=== PATIENT | female | born 1950 | race Caucasian/White ===

== ENCOUNTER 2017-11-07 14:01 | Outpatient (CLI) | payer MEDICARE | END 2017-11-07 23:59 | disposition home or self-care (01) | LOC: D.MAMMO 14:01 | DX: Z12.31 Encounter for screening mammogram for malignant neoplasm of breast (principal) ==

== ENCOUNTER 2017-12-03 08:00 | Outpatient (CLI) | payer MEDICARE | END 2017-12-03 09:00 | disposition home or self-care (01) | LOC: D.MAMMO 08:00 | DX: R92.8 Other abnormal and inconclusive findings on diagnostic imaging of breast (principal) ==

== ENCOUNTER 2019-09-05 15:26 | Inpatient (IN) | payer MEDICARE ==
[~2019-09-05] VITALS: Ht 167.6 cm; Wt 86.2 kg
--- NOTE | 2019-09-05 21:41 | NUR ---
STARTED DILAUDID STAPLING MACHINE OPERATOR PER ORDER. TEACHING PERFORMED ON USE.
[2019-09-05] MEDS ORDERED: ULTRAM50 MG PO (22:26)
[2019-09-05] MEDS ORDERED: LIPITOR20 MG PO (22:26)
[2019-09-05] MEDS ORDERED: KLONOPIN1 MG PO (22:27)
[2019-09-05] MEDS ORDERED: CYCLOBENZAPRINE10 MG PO (22:27)
[2019-09-05] MEDS ORDERED: LINZESS290 MCG PO (22:28)
[2019-09-05 22:30] VITALS: BP 149/82; BMI 30.7
--- NOTE | 2019-09-05 22:46 | NUR ---
ADMISSION ASSESSMENT AND HISTORY COMPLETE.
[2019-09-06 01:25] VITALS: BP 118/65
[2019-09-06 04:59] VITALS: BP 127/68
--- NOTE | 2019-09-06 07:00 | NUR ---
ALERT AND ORIENTED. NO C/O PAIN, DILAUDID CAMPGROUND CARETAKER MANAGING PAIN AT THIS TIME. NO S/S OF ACUTE DISTRESS NOTED. ON BEDREST D/T RIGHT ANKLE FX. FELL AT HOME. IV TO LEFT HAND, NS INFUSING @ 75ML/HR. SITE PATENT WITHOUT REDNESS OR SWELLING. DENIES ANY NEEDS AT THIS TIME. CALL LIGHT IN REACH. WILL CONTINUE TO MONITOR.
[2019-09-06 09:27] VITALS: BP 144/78
[2019-09-06 12:25] VITALS: Ht 167.6 cm; Wt 86.2 kg
[2019-09-06 13:19] VITALS: BP 150/85
--- NOTE | 2019-09-06 13:41 | NUR ---
LYING IN BED,WITHOUT DISTRESS.CALL LIGHT IN REACH
[2019-09-06 17:47] VITALS: BP 140/85
--- NOTE | 2019-09-06 18:12 | NUR ---
ALERT AND ORIENTED, SITTING UP IN BED WITH EYES OPEN. NO C/O PAIN. NO S/S OF ACUTE DISTRESS NOTED. DENIES ANY NEEDS AT THIS TIME. CALL LIGHT IN REACH. WILL CONTINUE TO MONITOR.
--- NOTE | 2019-09-06 19:25 | NUR ---
A&O X 4. SUPINE IN BED, REPORTS PAIN OF 6/10. ICE PACKS TO RIGHT ANKLE PER REQUEST. DRESSING C/D/I. WILL CONTINUE TO MONITOR.
[2019-09-06 20:00] VITALS: BP 128/77
[2019-09-07 00:57] VITALS: BP 142/65
--- NOTE | 2019-09-07 02:19 | NUR ---
I have reviewed this patient and I concur with the Shift Assessment completed by the Licensed Practical Nurse today this shift.
[2019-09-07 04:57] VITALS: BP 140/68
[2019-09-07 05:54] LABS: BASOPHILS 0.3 % (0-2); EOSINOPHILS 0.8 % (0-7); HEMATOCRIT 38.2 % (36.0-48.0); IMMATURE GRANULOCYTES 0.4 % (0-5); LYMPHOCYTES 17.5 % (15-50); MCH 30.5 pg (26.0-34.0); MCHC 31.4 g/dL (31.0-37.0); MCV 97.2 fL (80.0-100.0); MEAN PLATELET VOLUME 10.4 fL (7.4-10.4); MONOCYTES 11.5 % (2-11); NEUTROPHILS 69.5 % (40-80); PLATELET COUNT 230 10x3/uL (130-400); RBC 3.93 10x6/uL (4.00-5.40); RDW 15.5 % (11.5-14.5); WBC 12.3 10x3/uL (4.8-10.8)
[2019-09-07 06:12] LABS: ALBUMIN 2.8 g/dL (3.4-5.0); ALKALINE PHOSPHATASE 66 U/L (30-120); ALT (SGPT) 13 U/L (10-68); BILIRUBIN - TOTAL 0.56 mg/dL (0.2-1.3); CALC OSMOLALITY 275 mosm/kg (275-300); CALCIUM 7.7 mg/dL (8.5-10.1); CHLORIDE - SERUM 104 mmol/L (98-107); CREATININE - SERUM 0.8 mg/dL (0.6-1.3); GLUCOSE 110 mg/dL (74-106); POTASSIUM - SERUM 3.4 mmol/L (3.5-5.1); PROTEIN - SERUM 5.9 g/dL (6.4-8.2); SODIUM 138 mmol/L (136-145); UREA NITROGEN 9 mg/dL (7-18); eGFR NON AFRICAN AMERICAN 75 mL/min (90-120)
--- NOTE | 2019-09-07 07:00 | NUR ---
RECEIVED PT FROM GOLD FRAME ASSEMBLER. UPON ENTERING PT IS ALERT AND ORIENTED X4. RIGHT ANKLE IS BROKEN ON BOTH SIDES, REFUSING SURGERY, HAS A BOOT. HAS T1 COMPRESSION FRACTURE. USES TRAPEZE BAR AND BED TINEO AND IS ON BED REST. PT HAS LEFT HAND NS @ 75. PT HAS PRODUCTION ILLUSTRATOR DILAUDID. PT DENIES ANY NEEDS AT THIS TIME. DENIES ANY NEEDS AT THIS TIME.
--- NOTE | 2019-09-07 08:07 | NUR ---
PUT NEW DILAUDID SYRINGE IN PT RECORDS ASSISTANT PUMP. RESTING COMFORTABLY. DENIES ANY NEEDS. WILL CONTINUE TO MONITOR.
--- NOTE | 2019-09-07 08:36 | NUR ---
PT REFUSED NICODERM PATCH. RESTING COMFORTABLY IN BED. SAYS DILAUDID IS MAKING HER FEEL VERY DROWSY. DENIES ANY NEEDS OR INTERVENTIONS FOR REPORTED DROWSINESS. RESTING COMFORTABLY IN BED. WILL CONTINUE TO MONITOR.
[2019-09-07 08:47] VITALS: BP 104/62
--- NOTE | 2019-09-07 09:50 | NUR ---
PT GONE TO XRAY.
--- NOTE | 2019-09-07 10:50 | NUR ---
PT IN ROOM WITH PT, WORKING WITH AMBULATION AND PLACING BOOT. PT WISHES TO GET UP TO THE BEDSIDE COMMODE. DENIES NEEDS CURRENTLY. WILL CONTINUE TO MONITOR.
--- NOTE | 2019-09-07 11:14 | NUR ---
CALLED REPORT TO MED 2. PT IS TRANSFERRING DUE TO PENDING COVID TEST.
[2019-09-07 12:05] LABS: C-REACTIVE PROTEIN 16.9 mg/dL (0.0-0.9)
[2019-09-07 12:34] LABS: ERYTHROCYTE SEDIMENTATION RATE 17 mm/hr (0-30)
--- NOTE | 2019-09-07 13:01 | NUR ---
TRANSFERED PT TO [facility], ANGEL DIAZ IS TAKING PATIENT.
--- NOTE | 2019-09-07 13:22 | NUR ---
RECEIVED PT TO ROOM 2128 VIA BED. PT A/O X4, RESP EVEN AND NONLABORED ON RA. LT HAND AND RT FA IV BOTH SL. ORIENTED PT TO ROOM AND CALL LIGHT. PT REFUSES TO WEAR BACK BRACE AND BOOT. STATES THAT THEY ARE VERY UMCOMFORTABLE. 9AM MEDS ON EMAR SHOWING THEY NEED TO BE GIVEN. WILL ASSESS PT AND CONTINUE PLAN OF CARE.
--- NOTE | 2019-09-07 13:43 | NUR ---
I have reviewed this patient and I concur with the Shift Assessment completed by the Licensed Practical Nurse today this shift.
[2019-09-07 13:55] VITALS: BP 148/73
[2019-09-07 16:53] VITALS: BP 139/81
--- NOTE | 2019-09-07 17:11 | NUR ---
URINE SAMPLE COLLECTED AND TAKE TO LAB. PT RESTING COMFORTABLY IN BED,DENIES ANY NEEDS AT THIS TIME. CALL LIGHT IN REACH.
[2019-09-07 17:31] LABS: BILIRUBIN NEGATIVE (NEGATIVE); GLUCOSE NEGATIVE (NEGATIVE); KETONE NEGATIVE (NEGATIVE); NITRITE NEGATIVE (NEGATIVE); SPECIFIC GRAVITY 1.015 (1.005-1.020); UROBILINOGEN NORMAL (NORMAL)
[2019-09-07 17:32] LABS: RED CELLS - URINE OCC /hpf (0-5); WHITE CELLS - URINE OCC /hpf (NEGATIVE)
[2019-09-07 20:35] VITALS: BP 135/68
[2019-09-08 04:01] LABS: BASOPHILS 0.4 % (0-2); EOSINOPHILS 1.2 % (0-7); HEMATOCRIT 36.4 % (36.0-48.0); HEMOGLOBIN 11.7 g/dL (12-16); IMMATURE GRANULOCYTES 0.4 % (0-5); LYMPHOCYTES 14.6 % (15-50); MCH 30.7 pg (26.0-34.0); MCHC 32.1 g/dL (31.0-37.0); MCV 95.5 fL (80.0-100.0); MEAN PLATELET VOLUME 10.4 fL (7.4-10.4); MONOCYTES 10.5 % (2-11); NEUTROPHILS 72.9 % (40-80); PLATELET COUNT 219 10x3/uL (130-400); RBC 3.81 10x6/uL (4.00-5.40); WBC 11.3 10x3/uL (4.8-10.8)
[2019-09-08 04:05] LABS: ALBUMIN 2.7 g/dL (3.4-5.0); ALKALINE PHOSPHATASE 65 U/L (30-120); CALC OSMOLALITY 269 mosm/kg (275-300); CALCIUM 7.9 mg/dL (8.5-10.1); CARBON DIOXIDE 26.7 mmol/L (21.0-32.0); CHLORIDE - SERUM 103 mmol/L (98-107); CREATININE - SERUM 0.6 mg/dL (0.6-1.3); GLUCOSE 107 mg/dL (74-106); POTASSIUM - SERUM 3.6 mmol/L (3.5-5.1); PROTEIN - SERUM 5.8 g/dL (6.4-8.2); SODIUM 136 mmol/L (136-145); UREA NITROGEN 8 mg/dL (7-18); eGFR NON AFRICAN AMERICAN > 90 mL/min (90-120)
[2019-09-08 04:14] LABS: ALT (SGPT) 17 U/L (10-68)
--- NOTE | 2019-09-08 08:55 | NUR ---
PT SITTING UP SEMI FOWLERS IN BED. RR EVEN AND UNLABORED ON RA. PT HAS A L FA PIV INFUSING NS @75 AND A DILUDID COMMUNITY AIDE @ ., SHE IS ALERT AND ORIENTED X3. SHE IS CURRENTLY WEARING HER BOOT TO THE RIGHT FOOT. PT STATES SHE IS READY TO GO HOME. BED LOCKED AND IN LOWEST POSITION, CALL LIGHT WITHIN REACH. WILL CTM
[2019-09-08 08:56] VITALS: BP 149/84
--- NOTE | 2019-09-08 11:07 | NUR ---
Nutrition Follow-up: In droplet isolation; covid pending. Nursing reports she ate ok this AM. Diet: Regular Wt: 190# (09/05) Labs noted: Glu 107, Ca 7.9, Alb 2.7 Meds noted: NS @ 75 -Encourage PO intake and honor food preferences. -Offer nutrition supplements. -RD following.
--- NOTE | 2019-09-08 12:09 | NUR ---
I have reviewed this patient and I concur with the Shift Assessment completed by the Licensed Practical Nurse today this shift.
[2019-09-08 20:38] VITALS: BP 142/87
[2019-09-09 04:07] LABS: IMMUNOGLOBULIN A 126 mg/dL (64-422); IMMUNOGLOBULIN G 414 mg/dL (586-1602)
[2019-09-09 04:16] LABS: BASOPHILS 0.2 % (0-2); EOSINOPHILS 1.1 % (0-7); HEMATOCRIT 35.6 % (36.0-48.0); HEMOGLOBIN 11.4 g/dL (12-16); IMMATURE GRANULOCYTES 0.6 % (0-5); LYMPHOCYTES 16.2 % (15-50); MCH 30.6 pg (26.0-34.0); MCV 95.7 fL (80.0-100.0); MEAN PLATELET VOLUME 10.4 fL (7.4-10.4); MONOCYTES 10.3 % (2-11); NEUTROPHILS 71.6 % (40-80); PLATELET COUNT 254 10x3/uL (130-400); RBC 3.72 10x6/uL (4.00-5.40); WBC 12.6 10x3/uL (4.8-10.8)
[2019-09-09 04:39] LABS: ALBUMIN 2.7 g/dL (3.4-5.0); ALKALINE PHOSPHATASE 62 U/L (30-120); ALT (SGPT) 16 U/L (10-68); BILIRUBIN - TOTAL 0.53 mg/dL (0.2-1.3); CALC OSMOLALITY 274 mosm/kg (275-300); CALCIUM 8.3 mg/dL (8.5-10.1); CARBON DIOXIDE 25.3 mmol/L (21.0-32.0); CHLORIDE - SERUM 104 mmol/L (98-107); CREATININE - SERUM 0.7 mg/dL (0.6-1.3); GLUCOSE 104 mg/dL (74-106); POTASSIUM - SERUM 3.7 mmol/L (3.5-5.1); PROTEIN - SERUM 5.9 g/dL (6.4-8.2); SODIUM 138 mmol/L (136-145); UREA NITROGEN 9 mg/dL (7-18); eGFR NON AFRICAN AMERICAN 87 mL/min (90-120)
--- NOTE | 2019-09-09 07:38 | NUR ---
REPORT RECEIVED FROM MEDICAL PROFESSIONALS ANDPATIENT CARE ASSUMED. PATIENT LAYING IN BED ON BACK AWAKE, ALERT AND ORIENTED X 4. BROUGHT PATIENT 2 CUPS OF ICE. PATIENT DENIES ANY NEEDS OR PAIN. PATIENT IS STABLE. WILL CONTINUE WITH PLAN OF CARE. SR UP X 2 BED IN LOW POSITION AND CALL LIGHT IN REACH.
[2019-09-09 08:58] VITALS: BP 149/76
--- NOTE | 2019-09-09 09:48 | NUR ---
COVID19 Test results Negative, may discontinue enhanced droplet isolation.
--- NOTE | 2019-09-09 15:20 | NUR ---
OT NOTE: PT COMPLETED SUPINE TO SIT WITH THE TRAP BAR REQUIRED SBA. PT COMPLETED EOB SITTING BALANCE WITH SBA. PT COMPLETED BUE AROM EXS AT EOB. PT COMPLETED SIT TO STAND WHILE MAINTAINING PRECAUTIONS WITH CGA. PT COMPLETED FACE HYGIENE WITH SET UP. 105-129 THANK YOU,CAS BURRIS
--- NOTE | 2019-09-09 19:30 | NUR ---
PT IN BED, AAO X 3, RESP EVEN AND UNLABORED. NO DISTRESS NOTED, CL IN REACH, SR UP X 2.
[2019-09-09 20:00] VITALS: BP 142/67
[2019-09-10] VITALS: BP 142/77
[2019-09-10 04:00] VITALS: BP 151/53
[2019-09-10 05:01] LABS: BASOPHILS 0.3 % (0-2); EOSINOPHILS 2.1 % (0-7); HEMATOCRIT 34.2 % (36.0-48.0); HEMOGLOBIN 11.1 g/dL (12-16); IMMATURE GRANULOCYTES 0.6 % (0-5); LYMPHOCYTES 17.3 % (15-50); MCH 31.2 pg (26.0-34.0); MCHC 32.5 g/dL (31.0-37.0); MCV 96.1 fL (80.0-100.0); MEAN PLATELET VOLUME 10.2 fL (7.4-10.4); MONOCYTES 13.4 % (2-11); NEUTROPHILS 66.3 % (40-80); PLATELET COUNT 276 10x3/uL (130-400); RBC 3.56 10x6/uL (4.00-5.40); WBC 10.2 10x3/uL (4.8-10.8)
[2019-09-10 05:22] LABS: % SATURATION 16 % (15-55); IRON 24 ug/dl (35-150); TOTAL IRON BIND CAPACITY 150 ug/dl (260-445); UNSAT IRON BIND CAPACITY 126 ug/dl (150-375)
[2019-09-10 05:34] LABS: ALBUMIN 2.5 g/dL (3.4-5.0); ALKALINE PHOSPHATASE 60 U/L (30-120); ALT (SGPT) 16 U/L (10-68); BILIRUBIN - TOTAL 0.65 mg/dL (0.2-1.3); CALC OSMOLALITY 278 mosm/kg (275-300); CALCIUM 8.2 mg/dL (8.5-10.1); CARBON DIOXIDE 25.5 mmol/L (21.0-32.0); CHLORIDE - SERUM 104 mmol/L (98-107); CREATININE - SERUM 0.7 mg/dL (0.6-1.3); FERRITIN 329 ng/mL (3-244); GLUCOSE 97 mg/dL (74-106); POTASSIUM - SERUM 3.4 mmol/L (3.5-5.1); PROTEIN - SERUM 5.8 g/dL (6.4-8.2); SODIUM 141 mmol/L (136-145); UREA NITROGEN 7 mg/dL (7-18); eGFR NON AFRICAN AMERICAN 87 mL/min (90-120)
--- NOTE | 2019-09-10 07:27 | NUR ---
PT ASLEEP BUT AROUSED TO NOISE, VOICE. BELLOWS CHARGER ASSEMBLER IN USE FOR PAIN.
[2019-09-10 10:56] VITALS: BP 142/72
--- NOTE | 2019-09-10 11:44 | NUR ---
Rehab Prescreening Consult recieved and the chart has been reviewed. She qualifies for ARU and will be accepted today if she is agreeable to participate in the required therapy. Discussed with the CM Kori Dixon RN Clinical Liaison, Rehab
--- NOTE | 2019-09-10 12:10 | MORECARE ---
CASE MANAGEMENT DISCHARGE SUMMARY PATIENT: JOSE FLANAGAN UNIT: [id number] ADM DATE: 09/07/19 AGE: 69 : 48 SEX: F ROOM/BED: D.3840 AUTHOR: SHALINI,DOC PHYSICIAN: REFERRING PHYSICIAN: ANASTACIO CALVO MD DATE OF SERVICE: 09/10/19 Discharge Plan Patient Name: JOSE FLANAGAN Facility: [facility]:[place] : 1950 Planned Disposition: Inpatient Rehab Anticipated Discharge Date: 09/10/19 Discharge Date: Expected LOS: 3 Initial Reviewer: [email or web address] Initial Review Date: 09/10/2019 Generated: 09/10/19 1:10 pm Comments DCP- Discharge Planning Updated by [email or web address]: Kori Jaramillo on 09/10/19 11:[address] Patient Name: JOSE FLANAGAN Admission Status: ER Accout number: [id number] Admission Date: 09-07-2019 : 1950 Admission Diagnosis:DISPLACED BIMALLEOLAR FRACTURE OF RIGHT LOWER LEG, INIT Attending: ANASTACIO CALVO Current LOS: 3 Anticipated DC Date: 09-10-2019 Planned Disposition: Inpatient Rehab Primary Insurance: [facility] [employer] DC Plan: DC to inpatient rehab at [facility] Discharge Planning Comments: CM met with patient to complete initial dc planning assessment. CM educated patient on the CM role and verbal consent given by patient to complete assessment. Patient lives at home alone. States her son lives next door, but isn't able to help much. CM discussed availability of home health, rehab services, and medical equipment. After discussing the difference between inpatient rehab and a skilled facility, the patient would like a referral to [facility] inpatient rehab. I informed [facility] with inpatient rehab and they will accept today, Vandana Landis APN informed. CM will continue to follow and will assist as needed with dc plans/needs. Medical Examiner: Kori Jaramillo DCP- Discharge Planning Updated by [email or web address]: Seble Rahman on 09/06/19 6:[address] SOTO SERVED AND EXPLAINED TO PATIENT, COPY GIVEN AND ONE PLACED IN CHART DCPIA - Discharge Planning Initial Assessment Updated by [email or web address]: Kori Jaramillo on 09/10/19 12:04 pm * Is the patient Alert and Oriented? Yes * PCP Dr. Leeanne Redd in [place] * Pharmacy [facility] in [place] * Preadmission Environment Home Alone * ADLs Partial Dependent * Partial ADLs (Assistance needed) Ambulation * Equipment Bedside Commode Shower Chair Walker * List name and contact numbers for known caregivers / representatives who currently or will assist patient after discharge: Dell shay - [phone] * Verbal permission to speak to the caregivers and representatives has been obtained from the patient. Yes * Community resources currently utilized None * Additional services required to return to the preadmission environment? No * Can the patient safely return to the preadmission environment? Yes * Has this patient been hospitalized within the prior 30 days at any hospital? No External Providers External Provider: [employer] Next Contact Date: Service Request Date: Service Type: Resolution: Reviewer: Comments: Coverage Notice Reviewer: [email or web address] Eliceo Rahman Notice Issued Date-Time: 09/06/2019 19:30 Notice Type: Medicare Outpatient Observation Notice Notice Delivered To: Patient Relationship to Patient: Project Archivist Name: Delivery Method: HAND - Hand Delivered Jeanne Days: Prior Verbal Notification: Recipient Understood Notice: Yes Recipient Signature: Yes Med Rec Note Co-signed by Attending: Coverage Notice Comment: Reviewer: [email or web address] Eliceo Jaramillo Notice Issued Date-Time: 09/10/2019 11:58 Notice Type: IM Discharge Notice Notice Delivered To: Patient Relationship to Patient: Self Project Archivist Name: Delivery Method: HAND - Hand Delivered Jeanne Days: Prior Verbal Notification: Recipient Understood Notice: Yes Recipient Signature: Yes Med Rec Note Co-signed by Attending: Coverage Notice Comment: IMM explained, signed, given, copy placed in MR Reviewer: [id number] Eliceo Jaramillo Notice Issued Date-Time: 09/10/2019 11:58 Notice Type: Patient Choice Letter Notice Delivered To: Patient Relationship to Patient: Self Project Archivist Name: Delivery Method: HAND - Hand Delivered Jeanne Days: Prior Verbal Notification: Recipient Understood Notice: Yes Recipient Signature: Yes Med Rec Note Co-signed by Attending: Coverage Notice Comment: HARRY for [facility] inpatient rehab Patient Name: JOSE FLANAGAN Page [phone] at 1210 All edits/amendments must be made on the electronic document DICTATION DATE: 09/10/19 1210 CONTINUOUS WAVE OPERATOR: ARAM 09/10/19 1210 RPT#: [id number] DC DATE: STATUS: ADM IN [facility] [address] [place] [address] END OF REPORT
[2019-09-10] MEDS ORDERED: Duragesic TRANSDERM (13:59)
[2019-09-10] MEDS ORDERED: LEVAQUIN750 MG PO (13:59)
[2019-09-10 14:29] VITALS: BP 142/78
--- NOTE | 2019-09-10 15:09 | NUR ---
OT NOTE: PT PERFORMED WELL TODAY. BED MOB WITH CGA; PRACTICED SIT TO STAND EXS X 10 REPS WITH USE OF WALKER; AMB TO AND FROM BATHROOM WITH WALKER AND MIN ASSIST; TOILET TRANSFERS IWTH MIN ASSIST; SIMPLE GROOMING WITH SET UP; DISCUSSED NEED FOR REHAB SINCE PT LIVES ALONE AND IS NWB FOR AT LEAST 6 WKS. JACQUELIN EPSTEIN, OTR/L [phone]
--- NOTE | 2019-09-10 16:36 | NUR ---
OT NOTE: PT COMPLETED BED MOB WITH SBA. PT COMPLETED SIT TO STAND WITH CGA. PT COMPLETED ADL MOB WITH RW WITH CGA/. PT COMPLETED TOILETING WITH SBA/CGA. PT DOING WELL. PT IS CONCERNED ABOUT MULTIPLE STEPS TO GET INTO RV. [phone] THANK YOU,CAS BURRIS
--- NOTE | 2019-09-10 18:26 | NUR ---
TRANSFERRED PT TO REHAB ON BED. PARTS DEPARTMENT SUPERVISOR WASTED, VANCOMYCIN INFUSING. BELONGINGS PACKED.
[2019-09-11] MEDS ORDERED: LIPITOR20 MG (03:17)
[2019-09-13 12:08] LABS: IMMUNOGLOBULIN E 14 IU/mL (6-495)
== END 2019-09-10 18:27 | DRG 551 ==
LOC: D.ER 15:26 → D.MS 18:21 → OBSVTIME 18:21 → D.MS 18:21 → D.M2 18:21 → D.SDCHOLD 09-07 12:04 → D.MS 09-07 12:08 → D.M2 09-07 12:59
PROVIDERS: Family Medicine; Internal Medicine Pulmonary Disease; ADMIT Internal Medicine Nephrology; ATTEND Internal Medicine Nephrology
DX: S22.089A Unspecified fracture of T11-T12 vertebra, initial encounter for closed fracture (principal); J18.9 Pneumonia, unspecified organism; J98.11 Atelectasis; S82.841A Displaced bimalleolar fracture of right lower leg, initial encounter for closed fracture; J45.909 Unspecified asthma, uncomplicated; J44.9 Chronic obstructive pulmonary disease, unspecified; W17.89XA Other fall from one level to another, initial encounter

== ENCOUNTER 2019-09-10 17:41 | Inpatient (IN) | payer OTHER ==
[~2019-09-10] VITALS: Ht 167.6 cm; Wt 86.2 kg
[~2019-09-10 17:41] MED LIST: CYCLOBENZAPRINE10 MG PO; Duragesic TRANSDERM; KLONOPIN1 MG PO; LEVAQUIN750 MG PO; LINZESS290 MCG PO; LIPITOR20 MG PO; ULTRAM50 MG PO
--- NOTE | 2019-09-10 18:55 | NUR ---
GREETED PATIENT AND INTRODUCED MYSELF HER NURSE. ASSISTED PATIENT TO BATHROOM USING ONE PERSON ASSIST AND WHEELCHAIR. BACK TO BED AND REPOSITIONED FOR COMFORT. RESPIRATIONS EVEN. NO S/S OF DISTRESS. CALL LIGHT IN REACH.
[2019-09-10 19:30] VITALS: BP 155/71
[2019-09-10 22:41] VITALS: BP 155/71; BMI 30.7
--- NOTE | 2019-09-11 00:13 | NUR ---
DR VIRGEN CALLED AND INFORMED OF PATIENTS ASSESSMENT AND BEHAVIORS. PATIENT IS A LOW RISK FOR SELF HARM. NO ORDERS RECEIVED. INSTRUCTED TO GIVE PATIENT A RESOURCE SHEET AT TIME OF DISCHARGE. INFORMATION COVERED WITH PATIENT AND SHE VERBALIZED UNDERSTANDING.
--- NOTE | 2019-09-11 03:05 | NUR ---
PT RESTING QUIETLY WITH EYES CLOSED. RESPIRATIONS EVEN. NO S/S OF DISTRESS. CALL LIGHT IN REACH.
[2019-09-11] MEDS ORDERED: LIPITOR20 MG (03:17)
[2019-09-11 06:44] LABS: BASOPHILS 0.2 % (0-2); EOSINOPHILS 2.4 % (0-7); HEMATOCRIT 33.6 % (36.0-48.0); HEMOGLOBIN 10.8 g/dL (12-16); LYMPHOCYTES 18.4 % (15-50); MCH 30.5 pg (26.0-34.0); MCHC 32.1 g/dL (31.0-37.0); MCV 94.9 fL (80.0-100.0); PLATELET COUNT 292 10x3/uL (130-400); RBC 3.54 10x6/uL (4.00-5.40); WBC 9.7 10x3/uL (4.8-10.8)
[2019-09-11 06:55] LABS: CALC OSMOLALITY 278 mosm/kg (275-300); CALCIUM 8.3 mg/dL (8.5-10.1); CARBON DIOXIDE 25.4 mmol/L (21.0-32.0); CHLORIDE - SERUM 105 mmol/L (98-107); CREATININE - SERUM 0.6 mg/dL (0.6-1.3); GLUCOSE 94 mg/dL (74-106); SODIUM 141 mmol/L (136-145); UREA NITROGEN 8 mg/dL (7-18); eGFR NON AFRICAN AMERICAN > 90 mL/min (90-120)
[2019-09-11 07:00] LABS: POTASSIUM - SERUM 3.4 mmol/L (3.5-5.1)
--- NOTE | 2019-09-11 07:40 | NUR ---
A/A/OX4. STATES SHE IS HAVING SOME PAIM BUT WILL WAIT A WHILE TO TAKE HER PAIN MEDS. NO REQUESTS VOICED. SALINE LOCK PATENT TO LEFT HAND AND RIGHT FOREARM WITHOUT REDNESS OR EDEMA. SIDERAILS UP X 2, CALL LIGHT IN REACH AND BED IN LOW, LOCKED POSITION. RIGHT FOOT ELEVATED ON PILLOW.
--- NOTE | 2019-09-11 09:28 | NUR ---
WHILE PT WAS TAKING HER SHOWER, THE SALINE LOCK IN HER HAND BECAME LOOSE AND CAM OUT OF HER HAND.
[2019-09-11 09:49] VITALS: Ht 167.6 cm; Wt 86.2 kg
[2019-09-11 10:39] VITALS: BP 146/90
--- NOTE | 2019-09-11 11:59 | NUR ---
I have reviewed this patient and I concur with the Shift Assessment completed by the Licensed Practical Nurse today this shift.
--- NOTE | 2019-09-11 19:00 | NUR ---
GREETED PATIENT AND INTRODUCED MYSELF HER NURSE. PATIENT IS RESTING QUIETLY IN BED WATCHING TV. RESPIRATIONS EVEN. NO S/S OF DISTRESS. BEDSIDE SHIFT REPORT COMPLETE FROM OFFGOING NURSE. PATIENT DENIES ANY NEEDS AT THIS TIME. CALL LIGHT IN REACH.
[2019-09-11 19:45] VITALS: BP 133/75
--- NOTE | 2019-09-12 02:24 | NUR ---
PT RESTING QUIETLY WITH EYES CLOSED. RESPIRATIONS EVEN. NO S/S OF DISTRESS. CALL LIGHT IN REACH.
--- NOTE | 2019-09-12 04:05 | NUR ---
NEW PERIPHERAL IV IN LEFT HAND. 22 GAUGE ON THIRD ATTEMPT. PATIENT TOLERATED PROCEDURE.
--- NOTE | 2019-09-12 06:22 | NUR ---
PT AWAKE AND LAYING IN BED. DENIES ANY NEEDS AT THIS TIME. RESPIRATIONS EVEN. NO S/S OF DISTRESS. CALL LIGHT IN REACH.
--- NOTE | 2019-09-12 07:32 | NUR ---
RECEIVED A/A/OX4. SOME PAIN BUT DECLINES PAIN MED AT THIS TIME, RATES IT AT A 3. NO REQUESTS VOICED. SIDERAILS UP X 2, CALL LIGHT IN REACH AND BED IN LOW, LOCKED POSITION. RIGHT FOOT ELEVATED ON PILLOW.
--- NOTE | 2019-09-12 11:19 | NUR ---
REQUESTED PAIN PILL FOR PAIN 10/10 RIGHT ANKLE. MEDICATED WITH ULTRAM 50 MG PO.
[2019-09-12 11:28] VITALS: BP 116/72
--- NOTE | 2019-09-12 13:20 | NUR ---
I have reviewed this patient and I concur with the Shift Assessment completed by the Licensed Practical Nurse today this shift.
--- NOTE | 2019-09-12 14:58 | NUR ---
REQUESTED MED FOR ANXIETY AND GIVEN KLONOPIN ORDERED.
--- NOTE | 2019-09-12 19:05 | NUR ---
GREETED PATIENT AND INTRODUCED MYSELF HER NURSE. PATIENT IS LAYING IN BED RESTING QUIETLY AT THIS TIME. BEDSIDE SHIFT REPORT COMPLETED FROM OFF GOING NURSE. RESPIRATIONS EVEN. NO S/S OF DISTRESS. CALL LIGHT IN REACH. PT. DENIES ANY NEEDS AT THIS TIME. CALL LIGHT IN REACH.
--- NOTE | 2019-09-12 19:05 | NUR ---
GREETED PATIENT AND INTRODUCED MYSELF HER NURSE. PATIENT IS LAYING IN BED RESTING QUIETLY AT THIS TIME. RESPIRATIONS EVEN. NO S/S OF DISTRESS. BEDSIDE SHIFT REPORT COMPLETED FROM OFF GOING NURSE. PATIENT DENIES ANY NEEDS AT THIS TIME. CALL LIGHT IN REACH.
[2019-09-12 20:00] VITALS: BP 114/58
--- NOTE | 2019-09-13 00:34 | NUR ---
PT RESTING QUIETLY WITH EYES CLOSED. RESPIRATIONS EVEN. NO S/S OF DISTRESS. CALL LIGHT IN REACH.
[2019-09-13 05:29] LABS: BASOPHILS 0.3 % (0-2); EOSINOPHILS 2.3 % (0-7); HEMATOCRIT 32.6 % (36.0-48.0); HEMOGLOBIN 10.2 g/dL (12-16); IMMATURE GRANULOCYTES 1.2 % (0-5); LYMPHOCYTES 21.2 % (15-50); MCH 29.7 pg (26.0-34.0); MCHC 31.3 g/dL (31.0-37.0); MCV 94.8 fL (80.0-100.0); MONOCYTES 11.2 % (2-11); NEUTROPHILS 63.8 % (40-80); RBC 3.44 10x6/uL (4.00-5.40)
[2019-09-13 06:07] LABS: PLATELET COUNT 379 10x3/uL (130-400)
[2019-09-13 06:25] LABS: ALBUMIN 2.2 g/dL (3.4-5.0); ALKALINE PHOSPHATASE 63 U/L (30-120); ALT (SGPT) 18 U/L (10-68); BILIRUBIN - TOTAL 0.47 mg/dL (0.2-1.3); CALC OSMOLALITY 277 mosm/kg (275-300); CALCIUM 7.8 mg/dL (8.5-10.1); CARBON DIOXIDE 27.9 mmol/L (21.0-32.0); CHLORIDE - SERUM 105 mmol/L (98-107); CREATININE - SERUM 0.8 mg/dL (0.6-1.3); GLUCOSE 96 mg/dL (74-106); POTASSIUM - SERUM 3.6 mmol/L (3.5-5.1); PROTEIN - SERUM 5.4 g/dL (6.4-8.2); SODIUM 140 mmol/L (136-145); UREA NITROGEN 9 mg/dL (7-18); eGFR NON AFRICAN AMERICAN 75 mL/min (90-120)
--- NOTE | 2019-09-13 07:42 | NUR ---
AWAKE AND ALERT IN BED, DENIES ANY PAIN OR NEEDS AT THIS TIME, C/L AND H2O IN REACH
[2019-09-13 08:09] VITALS: BP 116/69
--- NOTE | 2019-09-13 11:12 | NUR ---
PATIENT ADMITTED TO REHAB FROM ACUTE FLOOR. PATIENT PCP IS DR. RAUL CEDENO IN [place]. DME AT HOME IS BEDSIDE COMMODE, SHOWER CHAIR AND A WALKER. DISCHARGE PLANS ARE FOR PATIENT TO RETURN HOME. HER SON LIVES NEXT DOOR. CLINICAL UPDATE SFAXED TO [facility] AT , AUTH # [id number] WITH CONFORMATION RECIEVED
--- NOTE | 2019-09-13 12:00 | NUR ---
RESTING IN BED, DENIES ANY PAIN AT THIS TIME, C/L AND H2O IN REACH
[2019-09-13 12:34] VITALS: BP 116/69
--- NOTE | 2019-09-13 16:00 | NUR ---
AWAKE AND ALERT IN BED, DENIES ANY NEEDS AT THIS TIME, C/L AND H2O IN REACH
[2019-09-13 20:00] VITALS: BP 102/48
--- NOTE | 2019-09-13 20:20 | NUR ---
PT RESTING WITH EYES CLOSED, AROUSES TO SOFT VERBAL STIMULATION, VS OBTAINED PER ASSISTANT PROFESSOR IN FAMILY STUDIES, RIGHT ANKLE NOTED TO HAVE A LARGE BLISTER, PT REPORTS THAT IT "BUSTED TODAY", BUT INFORMED PT THAT THE BLISTER IS STILL THERE, WILL KEEP IT TO OPEN AIR AT THIS TIME, PT REPORTS FLATUS, AND HAVING SEVERAL LARGE BM'S TODAY, PT DENIES NEEDS OR PAIN AT THIS TIME, BED IN LOW POSITION, SIDE RAILS X 2, CALL LIGHT IN REACH
--- NOTE | 2019-09-13 21:32 | NUR ---
PT AWAKE, ADM 2100 MEDS PER MD ORDERS, SEE EMAR, PT REFUSES COLACE, MIRALAX, AND LIPITOR AT THIS TIME, PT REQUESTED AND SERVED DIET COLA, PT DOES REQUEST HER KLONIPIN AT 11:00 PM, PT DENIES FURTHER NEEDS, BED IN LOW POSITION, SIDE RAILS X 2, CALL LIGHT IN REACH
--- NOTE | 2019-09-13 22:32 | NUR ---
PT AWAKE, LOOKING AT CELL PHONE, DENIES NEEDS AT THIS TIME
--- NOTE | 2019-09-13 23:00 | NUR ---
PT AWAKE, ADM SUDHEER PER MD ORDERS, SEE EMAR, PT DENIES FURTHER NEEDS OR PAIN AT THIS TIME, BED IN LOW POSITION, SIDE RAILS X 2, CALL LIGHT IN REACH
--- NOTE | 2019-09-14 00:15 | NUR ---
PT RESTING WITH EYES CLOSED, RESP QUIET, NO DISTRESS NOTED, LEFT UNDISTURBED AT THIS TIME, BED IN LOW POSITION, SIDE RAILS X 2, CALL LIGHT IN REACH
--- NOTE | 2019-09-14 03:30 | NUR ---
PT RESTING WITH EYES CLOSED, AROUSES TO SOFT VERBAL STIMULATION, ATTEMPTED TO FLUSH SALINE LOCK IN LEFT HAND WITH NO SUCCESS, PT STATES "THAT IS REALLY HURTING", SALINE LOCK REMOVED, TIP INTACT, PRESSURE HELD, BANDAID APPLIED, THIS RN ATTEMPTED NEW IV IN RIGHT HAND WITH NO SUCCESS, PRESSURE HELD, BANDAID APPLIED, WILL HAVE CARTER AREVALO RN, CHARGE NURSE ATTEMPT IV
--- NOTE | 2019-09-14 04:20 | NUR ---
CARTER AREVALO, SKIP MINER BLASTING NURSE IN ROOM, IV IN RIGHT FA STARTED, 2ND ATTEMPT, PT GSUTAVO WELL, FLUSHED WITH NO DIFFICULTY, VANCOMYCIN HUNG IVPB PER MD ORDERS, SEE EMAR, PT REQUESTED AND SERVED FRESH COFFEE, DENIES FURTHER NEEDS OR PAIN AT THIS TIME, BED IN LOW POSITION, SIDE RAILS X 2, CALL LIGHT IN REACH
--- NOTE | 2019-09-14 06:26 | NUR ---
PT AWAKE, EATING HER ORANGE, IV CONVERTED TO SALINE LOCK, PT DENIES NEEDS OR PAIN AT THIS TIME, BED IN LOW POSITION, SIDE RAILS X 2, CALL LIGHT IN REACH
[2019-09-14 08:00] VITALS: BP 102/47
--- NOTE | 2019-09-14 13:12 | NUR ---
Nutrition follow-up: Diet: Regular PO Intake ~83% average x 9 meals labs reviewed Wt: 189# PO intake good at this time RDN following.
--- NOTE | 2019-09-14 14:47 | RHP ---
PATIENT: JOSE FLANAGAN MEDICAL RECORD: [id number] ACCOUNT: [id number] LOCATION:[id number] : [birth year] ADMISSION DATE: 09/10/19 REHABILITATION HISTORY AND PHYSICAL EXAMINATION POST ADMISSION PHYSICIAN EXAMINATION ADMITTING DIAGNOSIS: Bimalleolar ankle fracture. HISTORY OF PRESENT ILLNESS: The patient is a 69-year-old female patient who presents secondary to a bimalleolar ankle fracture in T11 and T12 compression fractures after a fall, presented to the Emergency Room on 09/05/2019 complaining of head and neck pain, right ankle pain after she fell from a 6 feet ladder and was placed on top of a roof. The patient described the pain as being worse with any type of range of motion. She denied loss of consciousness. X-ray showed a nondisplaced medial and lateral malleolus fracture. CT of her spine showed compression fractures of T11 and T12 with no canal abnormalities. She had a 20% loss of height of each vertebra. The patient was admitted for pain control and consult. Ortho consulted for the ankle fracture, but the patient did not wish to have surgery. She was informed that she would need to be nonweightbearing for at least 6 weeks and placed in a boot. She agrees with this. Neurosurgery was consulted for compression fracture. She had no gross deficits. He ordered a TLSO and plans to do an outpatient kyphoplasty on this patient. The patient did become short of breath after admission with increased dyspnea, wheezing. The patient has had an increased productive cough since admission. She denies any pleurisy or other complaints. She did run fever. She had chills. Pulmonary was consulted. A CTA was done secondary to an elevated D-dimer and history of DVT, it showed no evidence of PE. She was tested for COVID and placed in a COVID isolation. She continues to have low-grade temperature at times, weakness and feeling of unwell. She has been continued with pulmonary support and IV antibiotics, antitussives and mucolytics. On 09/09/2019, she began to feel better. She had been afebrile. Her COVID was negative. Her flu was negative. She has continued to have treatment for her cough and congestion. Previously, she was living alone, was independent with ADLs and mobility. Currently, she is mod to max assist for ADLs. She lives alone. She is nonweightbearing on right lower extremity. She has 8 stairs to climb to get into her house and additional 2 to get into her bathroom. She will need physical therapy and occupational therapy to get her back to a level of functioning that she can do this. COMORBIDITIES: Include arthritis, COPD, decrease in mobility, difficulty walking, T11-T12 compression fractures, pleural effusion, joint swelling, decreased range of motion, functional deficit. PAST MEDICAL HISTORY: Significant for arthritis. PAST SURGICAL HISTORY: Includes . She has had hip pinning and a femur surgery. ALLERGIES: NIACIN. CURRENT MEDICATIONS: Include Duragesic patch 50 mcg daily, Floranex daily, Levaquin 750 daily, Colace 100 mg b.i.d., MiraLax 17 g in 8 ounces of water daily, Protonix 40 mg daily, Linzess 290 mcg daily, vancomycin 1 gram every 12 hours, Mucinex 1 tab b.i.d., nystatin suspension b.i.d. p.r.n., atorvastatin 20 mg at bedtime, Singulair 10 mg at bedtime, Tessalon Perles 100 mg t.i.d., HISTORY AND PHYSICAL [id number] JOSE FLANAGAN Flexeril 10 mg t.i.d., Klonopin 1 mg b.i.d. p.r.n. HABITS: No alcohol or tobacco use. FAMILY HISTORY: Noncontributory. SOCIAL HISTORY: The patient hopes to return back home and get back to her prior level of functioning. REVIEW OF SYSTEMS: GENERAL: Does complain of weakness. HEENT: Denies cold, cough or congestion at this time. CARDIOVASCULAR: Denies any chest pain. LUNGS: Does complain of occasional shortness of breath. PHYSICAL EXAMINATION: VITAL SIGNS: Stable. She is afebrile. GENERAL: A somewhat obese female, in no acute distress upon exam. HEENT: Normocephalic and atraumatic. Mucosa moist. NECK: Supple. No lymphadenopathy. LUNGS: Clear at this time in upper quinn with decreased breath sounds in the bases. HEART: Regular rate and rhythm. No murmurs, rubs or gallops. ABDOMEN: Soft, benign and nondistended. Positive bowel sounds times 4. EXTREMITIES: No clubbing, cyanosis or edema. She does have some discoloration to her ankle. She is in a brace at this time. NEUROLOGIC: She does have proximal muscle weakness. LABORATORY DATA: White count is 9.7, H&H of 11 and 34 and platelet count was noted to be 292. Her sodium is 141, potassium 3.4, BUN and creatinine of 8 and 0.6 and blood sugar was noted to be normal at 94. ASSESSMENT: This is a 69-year-old female patient admitted to rehab with a working diagnosis of bimalleolar ankle fracture. The patient has potential to make improvement. We instituted the following multidisciplinary therapies include, but not limited to physical, occupational therapy, prosthetics and orthotics. Given her complex medical condition and risk for more complications, rehabilitation services cannot be provided at a low level of care such as jail facility. PLAN: 1. Admit to [facility] for intensive inpatient therapy to include the following disciplines; A. Physical therapy to improve gait, all transfer skills and bed mobility to a modified independent level. B. Occupational therapy to improve activity of daily living. C. Case management to assist with discharge planning and placement options. D. Nutrition to assist with nutritional needs. E. Rehabilitation nursing to assist in monitoring the patient's underlying medical condition and to assist with any type of bowel or bladder management. 2. The patient's current medication and medical care will be continued. 3. The patient will be placed on standard fall precautions. 4. The patient's estimated length of stay is approximately 7-10 days. 5. We will go ahead and order vitamin D levels on her and check calcium. 6. We will have her follow up with neurosurgery status post discharge and I HISTORY AND PHYSICAL [id number] JOSE FLANAGAN will see again in the a.m. on Friday. TRANSINT:[id number] Voice Confirmation ID: [id number] DOCUMENT ID: [id number] CARLYN notes whether there has been none or any medical/functional change since admission: - No change since preadmission screen. CARLYN attests patient continues to be appropriate for IRF: - Continues to be appropriate. BREANNA MOCTEZUMA MD at 1447 CC: [id number] DICTATION DATE: 09/11/19835 SENIOR QA ENGINEER: 09/11/19 0912 ADM IN [place] [id number] [place], [place] [id number]
--- NOTE | 2019-09-14 18:12 | NUR ---
PT RESTING IN BED WITH EYES OPEN CALL LIGHT IN REACH NO PROBLEMS WILL MONITER
--- NOTE | 2019-09-14 19:30 | NUR ---
GREETED PATIENT AND INTRODUCED MYSELF HER NURSE. PATIENT IS RESTING QUIETLY WATCHING TV. RESPIRATIONS EVEN. NO S/S OF DISTRESS. CALL LIGHT IN REACH.
[2019-09-14 20:47] VITALS: BP 116/62
--- NOTE | 2019-09-15 02:53 | NUR ---
PT RESTING QUIETLY WITH EYES CLOSED. RESPIRATIONS EVEN. NO S/S OF DISTRESS. CALL LIGHT IN REACH.
[2019-09-15 06:49] LABS: BASOPHILS 0.5 % (0-2); EOSINOPHILS 2.2 % (0-7); HEMATOCRIT 34.6 % (36.0-48.0); IMMATURE GRANULOCYTES 1.2 % (0-5); LYMPHOCYTES 20.8 % (15-50); MCH 30.2 pg (26.0-34.0); MCHC 31.8 g/dL (31.0-37.0); MCV 95.1 fL (80.0-100.0); MEAN PLATELET VOLUME 9.6 fL (7.4-10.4); MONOCYTES 11.6 % (2-11); NEUTROPHILS 63.7 % (40-80); PLATELET COUNT 445 10x3/uL (130-400); RBC 3.64 10x6/uL (4.00-5.40); WBC 11.5 10x3/uL (4.8-10.8)
[2019-09-15 06:58] LABS: CALC OSMOLALITY 278 mosm/kg (275-300); CALCIUM 8.5 mg/dL (8.5-10.1); CARBON DIOXIDE 27.5 mmol/L (21.0-32.0); CHLORIDE - SERUM 105 mmol/L (98-107); CREATININE - SERUM 0.7 mg/dL (0.6-1.3); GLUCOSE 89 mg/dL (74-106); POTASSIUM - SERUM 4.1 mmol/L (3.5-5.1); SODIUM 141 mmol/L (136-145); UREA NITROGEN 9 mg/dL (7-18); eGFR NON AFRICAN AMERICAN 87 mL/min (90-120)
[2019-09-15 08:00] VITALS: BP 114/62
--- NOTE | 2019-09-15 08:00 | NUR ---
RESTING IN BED WITH EYES CLOSED, NO S/S OF DISTRESS NOTED, C/L AND H2O IN REACH
--- NOTE | 2019-09-15 11:00 | NUR ---
I have reviewed this patient and I concur with the Shift Assessment completed by the Licensed Practical Nurse today this shift.
--- NOTE | 2019-09-15 15:09 | NUR ---
CARE TEAM MEETING: PATIENT DOING WELL IN THERAPY. HER TENATIVE DISCHARGE DATE IS 09/17/19. WILL CONTINUE TO FOLLOW WITH PATIENT .
--- NOTE | 2019-09-15 16:00 | NUR ---
RESTING IN BED IV GOING, NO S/S OF DISTRESS, DENIES ANY PAIN OR NEEDS AT THIS TIME, C/L AND H2O IN REACH
--- NOTE | 2019-09-15 16:13 | NUR ---
RESTING IN BED, DENIES ANY PAIN OR NEEDS AT THIS TIME, C/L AND H2O IN REACH
--- NOTE | 2019-09-15 18:46 | NUR ---
GREETED PATIENT AND INTRODUCED MYSELF HER NURSE. PATIENT IS LAYING IN BED RESTING QUIETLY AT THIS TIME. RESPIRATIONS EVEN. NO S/S OF DISTRESS. DENIES ANY FURTHER NEEDS AT THIS TIME. CALL LIGHT IN REACH.
[2019-09-15 19:45] VITALS: BP 128/70
--- NOTE | 2019-09-16 00:35 | NUR ---
PT RESTING QUIETLY WITH EYES CLOSED. RESPIRATIONS EVEN. NO S/S OF DISTRESS. CALL LIGHT IN REACH.
[2019-09-16 07:50] VITALS: BP 149/70
--- NOTE | 2019-09-16 08:00 | NUR ---
PT RESTING IN BED WITH EYES OPEN CALL LIGHT IN REACH WILL MONITER
[2019-09-16] MEDS ORDERED: Duragesic TRANSDERM (08:42)
[2019-09-16] MEDS ORDERED: KLONOPIN1 MG PO (08:43)
[2019-09-16] MEDS ORDERED: SINGULAIR10 MG PO (08:43)
--- NOTE | 2019-09-16 10:15 | NUR ---
PATIENT DISCHARGING HOME TODAY WITH FAMILY. [facility] WILL PROVIDE THERAPY AT HOME. [facility] WILL DELIVER A ROLLING WALKER TO PATIENT. DR.SHELLY CEDENO 09/20/19 @ 10:30. PATIENT CHOICE FORM FOR HOME HEALTH SIGNED COPY GIVEN TO PATIENT . NO COMPARE DATA REVIEWED PATIENT HAS BEEN A CLIENT PREVIOUS WITH THEM. [facility] FORM SIGNED, EXPLAINED AND ON GIVEN TO PATIENT AND ONE FILED IN CHART. DISCHARGE INSTRRUCTIONS FAXED TO PCP, HOME HEALTH AND TO [facility] , AUTH. # [id number] WITH CONFORMATION RECEIVED AND REVIEWED WITH PATIENT PER PRIMARY NURSE.
[2019-09-16] MEDS ORDERED: ULTRAM50 MG PO (10:53)
[2019-09-16] MEDS ORDERED: PROZAC40 MG PO (10:53)
[2019-09-16] MEDS ORDERED: TESSALON PERLE100 MG PO (10:55)
[2019-09-16] MEDS ORDERED: MUCINEX DM ER1 EAC1 PO (10:57)
[2019-09-16] MEDS ORDERED: COLACE100 MG PO (11:04)
[2019-09-16] MEDS ORDERED: PROTONIX40 MG PO (11:04)
[2019-09-16] MEDS ORDERED: MIRALAX17 GM PO (11:05)
[2019-09-16] MEDS ORDERED: LINZESS145 MCG PO (11:05)
[2019-09-16] MEDS ORDERED: ZOFRAN4 MG PO (11:06)
--- NOTE | 2019-09-16 12:50 | NUR ---
PT DISCHARGED TO HOME VIA WHEELCHAIR WITH FAMILY MEMBER DISCHARGE MEDS AND SUMMARY REVIEWED WITH PT NO QUESTIONS OR CONCERNS WILL MONITER
== END 2019-09-16 13:47 | disposition home health service (06) | DRG 559 ==
LOC: D.PSYCH 17:41 → D.REHAB 17:49
PROVIDERS: ADMIT Emergency Medicine; ATTEND Emergency Medicine
DX: S82.841D Displaced bimalleolar fracture of right lower leg, subsequent encounter for closed fracture with routine healing (principal); J18.9 Pneumonia, unspecified organism; J98.11 Atelectasis; R04.2 Hemoptysis; S22.089D Unspecified fracture of T11-T12 vertebra, subsequent encounter for fracture with routine healing; J45.909 Unspecified asthma, uncomplicated; J44.9 Chronic obstructive pulmonary disease, unspecified; D50.9 Iron deficiency anemia, unspecified